=== PATIENT | male | born 1950 | race Caucasian/White ===

== ENCOUNTER 2018-12-10 11:13 | Emergency (ER) | payer OTHER, MEDICARE ==
[~2018-12-10] VITALS: Ht 175.3 cm; Wt 90.9 kg
[2018-12-10 11:30] VITALS: BP 156/82
[2018-12-10] MEDS ORDERED: traMADol 50MG tablet PO ONE (12:40)
[2018-12-10] MEDS ORDERED: ORPH100T2 PO (12:40)
[2018-12-10] MEDS ORDERED: TRAM50TA PO (12:40)
[2018-12-10] MEDS ORDERED: orphenadrine citrate 60mg/2ml inj. IM ONE (12:40)
== END 2018-12-10 13:18 | disposition home or self-care (01) ==
LOC: ER 11:14
DX: S39.012A Strain of muscle, fascia and tendon of lower back, initial encounter (principal); S80.11XA Contusion of right lower leg, initial encounter; E78.00 Pure hypercholesterolemia, unspecified; I10 Essential (primary) hypertension; K21.9 Gastro-esophageal reflux disease without esophagitis; E11.9 Type 2 diabetes mellitus without complications; F41.9 Anxiety disorder, unspecified; F31.9 Bipolar disorder, unspecified; Z88.0 Allergy status to penicillin; Z79.899 Other long term (current) drug therapy; V89.2XXA Person injured in unspecified motor-vehicle accident, traffic, initial encounter; Y93.89 Activity, other specified; Y92.488 Other paved roadways as the place of occurrence of the external cause; Y99.8 Other external cause status
CPT/HCPCS: 96372; 99283; J2360